=== PATIENT | female | born 1950 | race Caucasian/White ===

== ENCOUNTER 2025-04-16 12:13 | Outpatient (CLI) | payer MEDICARE, BC | END 2025-04-16 12:14 | disposition home or self-care (01) | LOC: SCSRAD 12:13 | PROVIDERS: ATTEND Internal Medicine | DX: Z01.818 Encounter for other preprocedural examination (principal); R06.02 Shortness of breath; M16.12 Unilateral primary osteoarthritis, left hip; I51.89 Other ill-defined heart diseases | CPT/HCPCS: 71046 ==